=== PATIENT | male | born 1935 | race Caucasian/White ===

== ENCOUNTER 2021-08-27 08:34 | Emergency (ER) | payer MEDICARE ==
[2021-08-27] MEDS ORDERED: CELECOXIB200 M1 PO (10:28)
== END 2021-08-27 10:32 | disposition home or self-care (01) ==
LOC: ED 08:34
DX: R60.0 Localized edema (principal)

== ENCOUNTER 2023-03-06 09:31 | Emergency (ER) | payer OTHER ==
[~2023-03-06] VITALS: Wt 61.2 kg
[~2023-03-06 09:31] MED LIST: CELECOXIB200 M1 PO
[2023-03-06 11:18] LABS: BASO % 0.6 % (0.0-1.0); EOS # 0.2 10*3/uL (0.0-0.4); EOS % 2.4 % (1.0-4.0); HEMATOCRIT 46.8 % (42.0-52.0); LYMPH # 1.1 10*3/uL (1.3-4.4); LYMPH % 16.5 % (27.0-41.0); MEAN CELL VOLUME 91.6 fl (80.0-94.0); MEAN CORPUSCULAR HGB 31.5 pg (27.0-31.0); MEAN CORPUSCULAR HGB CONC 34.4 g/dl (33.0-37.0); MEAN PLATELET VOLUME 10.3 fl (9.6-12.3); MONO # 0.4 10*3/uL (0.1-1.0); MONO % 5.5 % (3.0-9.0); NEUT # 4.8 10*3/uL (2.3-7.9); PLATELET COUNT AUTOMATED 249 10*3/uL (130-400); RED BLOOD COUNT 5.11 10*6/uL (4.50-5.90); RED CELL DISTRI WIDTH 14.3 % (0-14.5); WHITE BLOOD COUNT 6.4 10*3/uL (4.8-10.8)
[2023-03-06 11:31] LABS: ACT PARTIAL THROMBO TIME 30.4 SECONDS (20.0-32.1)
[2023-03-06 11:41] LABS: ALKALINE PHOSPHATASE 47 U/L (46-116); BUN 18 mg/dl (9-23); CHLORIDE 109 mmol/L (98-107); POTASSIUM 4.2 mmol/L (3.4-5.1); SGPT/ALT 11 U/L (5-49); TOTAL PROTEIN 6.8 gm/dL (6.0-8.0)
== END 2023-03-06 15:49 | disposition home or self-care (01) ==
LOC: ED 09:31
PROVIDERS: Family Medicine
DX: J90 Pleural effusion, not elsewhere classified (principal); I50.9 Heart failure, unspecified; R91.8 Other nonspecific abnormal finding of lung field; I10 Essential (primary) hypertension; Z20.822 Contact with and (suspected) exposure to COVID-19